=== PATIENT | female | born 1955 | race Caucasian/White ===

== ENCOUNTER 2019-05-10 11:22 | Day surgery (SDC) | payer MEDICARE, OTHER ==
[~2019-05-10] VITALS: Ht 160 cm; Wt 77.4 kg
[2019-05-10] MEDS ORDERED: normal saline 1000ml 1,000 ML IV ONE (11:45)
[2019-05-10] MEDS ORDERED: ACET-2119 PO (12:11)
[2019-05-10] MEDS ORDERED: CYAN-51 PO (12:11)
[2019-05-10] MEDS ORDERED: DOCU100C40 PO (12:11)
[2019-05-10 12:23] VITALS: BP 110/69
[2019-05-10] MEDS ORDERED: heparin sodium, porcine/PF 100unit/ml 5ML syringe ICATH ONE (13:10)
[2019-05-10] MEDS ORDERED: midazolam 2 mg/2 ml injection IV PRN (13:10)
[2019-05-10] MEDS ORDERED: fentaNYL/PF 50MCG/1 ML 2ML syringe IV PRN (13:10)
[2019-05-10] MEDS ORDERED: LIDOcaine 1%/PF 5ML 10 MG/ML VIAL SQ ONE (13:10)
[2019-05-10] MEDS ORDERED: fentaNYL/PF 50MCG/1 ML 2ML syringe ONE (13:16)
[2019-05-10] MEDS ORDERED: heparin sodium, porcine/PF 100unit/ml 5ML syringe ONE ×2 (13:16→13:29)
[2019-05-10] MEDS ORDERED: midazolam 2 mg/2 ml injection ONE (13:16)
[2019-05-10] MEDS ORDERED: LIDOcaine 1%/PF 5ML 10 MG/ML VIAL ONE (13:16)
[2019-05-10 14:12] VITALS: BP 135/95
[2019-05-10 14:30] VITALS: BP 144/78
[2019-05-10 14:44] VITALS: BP 128/77
== END 2019-05-10 14:05 | disposition home or self-care (01) ==
LOC: SSTAY O 11:22
PROVIDERS: ATTEND Radiology Diagnostic Radiology
DX: C20 Malignant neoplasm of rectum (principal); Z79.899 Other long term (current) drug therapy
CPT/HCPCS: 36561; 76937; 77001; 99152; 99153; J1642; J2250; J3010; J7030